=== PATIENT | male | born 1975 | race Caucasian/White ===

== ENCOUNTER 2016-11-06 20:05 | Emergency (ER) | payer OTHER ==
[2016-11-06 20:22] VITALS: BP 123/73
[2016-11-06] MEDS ORDERED: Ibuprofen 600 MG Tab PO ONE (20:46)
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
== END 2016-11-06 21:15 | disposition home or self-care (01) ==
LOC: JD.ED 20:05
DX: M25.561 Pain in right knee (principal); M54.5 Low back pain; R21 Rash and other nonspecific skin eruption; V53.5XXA Driver of pick-up truck or van injured in collision with car, pick-up truck or van in traffic accident, initial encounter
CPT/HCPCS: 99284; A9270; 99283

== ENCOUNTER 2018-01-25 21:19 | Emergency (ER) | payer SELFPAY ==
[2018-01-25 21:28] VITALS: BP 123/87
--- NOTE | 2018-01-25 21:32 | EDM.PDOC ---
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 Patient basically has been complaining of severe muscle cramps occurring primarily in his posterior thighs calves and left upper abdomen for last 3-4 days. Tonight the pain was so bad that he nearly passed out or fainted secondary to the severity of the pain. This pain was primarily in his left upper lateral abdominal wall. White could see the muscle bulged up at the site of planes of pain. This created him to be quite short of breath. He nearly fainted. Patient denies being on any medications. He did go to work today he has been eating and drinking normally. reports she's been having some positive constipation as of late suggesting some fluid probation. He does have a history of urinary frequency. States he is thirsty and does drink a lot. This raises concerns of possible occult type 2 diabetes. Onset: Gradual (Has been having intermittent muscle cramps for the better part of a week but particularly bad the last 3 days and tonight.) Duration: Day(s):, Intermittent, Waxing/Waning Location: Reports: Abdomen, Lower Extremity, Left, Lower Extremity, Right (Both posterior thighs and calves.) Quality: Reports: Other (Intermittent diffuse muscle cramping pain.) Severity: Severe (Night the pain was severe /. Still feels some discomfort in his left upper abdominal wall but not in any acute pain at this time) Improves with: Reports: Other (Muscle cramps come and go usually worse in the evening.) Context: Reports: Other (Was at rest tonight when he developed severe pain). Denies: Activity, Exercise, Lifting, Sick Contact, Trauma Associated Symptoms: Reports: Malaise, Nausea/Vomiting, Other (Near syncope tonight due to severity of muscle cramp in the left upper abdominal wall.). 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 Denies: Fever, Chills HEENT: Reports: No Symptoms Respiratory: Reports: No Symptoms Cardiovascular: Reports: Syncope (near syncope tonight due to severe muscle cramps left upper abdominal wall) Endocrine: Reports: Fatigue GI/Abdominal: Reports: Constipation : Reports: Frequency Musculoskeletal: Reports: Other (Diffuse intermittent muscle cramps abdominal wall both lower extremities.) Skin: Reports: Other (Has a chronic rash on his knees and elbows compatible psoriasis. Has never received treatment for this.) Neurological: Reports: Syncope (Near syncopal event tonight while having severe muscle cramping left upper abdominal wall). Denies: Difficulty Walking Psychiatric: Reports: No Symptoms Hematologic/Lymphatic: Reports: No Symptoms Immunologic: Reports: No Symptoms ED EXAM, DIZZINESS - Physical Exam Exam: See Below Exam Limited By: Language Barrier (Patient is primarily Citizen Of [place]-speaking. His faxes interpreted although he understands Swazi quite well.) General Appearance: Alert, WD/WN, No Apparent Distress Eye Exam: Right Eye: Conjunctival Injection (Mild bilaterally. He denies any itching of the eyes.) Throat/Mouth: Normal Inspection, Normal Lips, Normal Teeth, Normal Oropharynx, Other Head Exam: Atraumatic (Tongue is normal in appearance), Normocephalic Neck: Normal Inspection, Supple, Non-Tender, Full Range of Motion. No: Carotid Bruit, Lymphadenopathy (L), Lymphadenopathy (R) Respiratory/Chest: No Respiratory Distress, Lungs Clear, Normal Breath Sounds, No Accessory Muscle Use Cardiovascular: Normal Peripheral Pulses, Regular Rate, Rhythm, No Edema, No Gallop, No Murmur GI/Abdominal: Normal Bowel Sounds, Soft, Non-Tender, No Organomegaly, No Abnormal Bruit, No Mass, Pelvis Stable, Other (No surgical scars) Neurological: Alert, Normal Mood/Affect, Normal Dorsiflexion, CN II-XII Intact, No Motor/Sensory Deficits, Oriented x 3 DTR: 0: Achilles (L), 1+: Achilles (R), Achilles (L), 2+: Bicep (R), Bicep (L), Patella (R), Patella (L) Back Exam: Normal Inspection, Full Range of Motion. No: CVA Tenderness (L), CVA Tenderness (R) Extremities: Normal Inspection, Normal Range of Motion, Non-Tender, No Pedal Edema, Normal Capillary Refill Psychiatric: Normal Affect, Normal Mood Skin Exam: Warm, Dry, Intact, Normal Color Course - Vital Signs Last Recorded V/S: Last Vital Signs Temp 37.1 C 01/25/18 21:23 Pulse 77 01/25/18 21:23 Resp 18 01/25/18 21:23 BP 123/87 01/25/18 21:23 Pulse Ox 97 01/25/18 21:23 - Orders/Labs/Meds Orders: Active Orders 24 hr Category Date Time Status CALCIUM, IONIZED, SERUM [REF] Stat Lab 01/25/18 21:55 Received Labs: Laboratory Tests 01/25/18 01/25/18 01/25/18 Range/Units 21:55 21:55 21:55 WBC 7.91 (4.23-9.07) K/mm3 RBC 4.56 L (4.63-6.08) M/mm3 Hgb 14.0 (13.7-17.5) gm/L Hct 39.7 L (40.1-51.0) % MCV 87.1 (79.0-92.2) fl MCH 30.7 (25.7-32.2) pg MCHC 35.3 (32.2-35.5) g/dl RDW Std Deviation 40.4 (35.1-43.9) fL Plt Count 291 (163-337) K/mm3 MPV 8.9 L (9.4-12.3) fl Neutrophils % (Manual) 62 H (40-60) % Band Neutrophils % 0 (0-10) % Lymphocytes % (Manual) 25 (20-40) % Atypical Lymphs % 0 % Monocytes % (Manual) 11 H (2-10) % Eosinophils % (Manual) 1 (0.8-7.0) % Basophils % (Manual) 1 (0.2-1.2) Platelet Estimate Adequate Plt Morphology Comment Normal RBC Morph Comment Normal Sodium 139 (136-145) mEq/L Potassium 3.6 (3.5-5.1) mEq/L Chloride 104 (98-107) mEq/L Carbon Dioxide 26 (21-32) mEq/L Anion Gap 12.6 (5-15) BUN 21 H (7-18) mg/dL Creatinine 1.0 (0.7-1.3) mg/dL Est Cr Clr Drug Dosing 68.75 mL/min Estimated GFR (MDRD) > 60 (>60) mL/min BUN/Creatinine Ratio 21.0 H (14-18) Glucose 94 (74-106) mg/dL Lactic Acid (0.4-2.0) mmol/L Calcium 9.0 (8.5-10.1) mg/dL Magnesium (1.8-2.4) mg/dl Total Bilirubin 0.7 (0.2-1.0) mg/dL AST 33 (15-37) U/L ALT 99 H (16-63) U/L Alkaline Phosphatase 102 (46-116) U/L C-Reactive Protein 0.3 (<1.0) mg/dL Total Protein 7.5 (6.4-8.2) g/dl Albumin 4.0 (3.4-5.0) g/dl Globulin 3.5 gm/dL Albumin/Globulin Ratio 1.1 (1-2) Cholesterol (<200) mg/dL LDL Cholesterol Direct (<100) mg/dL HDL Cholesterol (40-59) mg/dL TSH 3rd Generation 2.925 (0.358-3.74) uIU/mL Urine Color Yellow (Yellow) Urine Appearance Clear (Clear) Urine pH 6.0 (5.0-8.0) Ur Specific [place] > or = 1.030 (1.005-1.030) Urine Protein Negative (Negative) Urine Glucose (UA) Negative (Negative) Urine Ketones Negative (Negative) Urine Occult Blood Negative (Negative) Urine Nitrite Negative (Negative) Urine Bilirubin Negative (Negative) Urine Urobilinogen 2.0 H (0.2-1.0) Ur Leukocyte Esterase Negative (Negative) Urine RBC Not seen (0-5) /hpf Urine WBC Not seen (0-5) /hpf Ur Epithelial Cells 0-5 (0-5) /hpf Amorphous Sediment Few H (NOT SEEN) /hpf Urine Bacteria Few (FEW) /hpf Urine Mucus Moderate H (FEW) /hpf Ketones (0.0-0.3) mM Hepatitis C Antibody (NEGATIVE) 01/25/18 01/25/18 01/25/18 Range/Units 21:55 21:55 21:55 WBC (4.23-9.07) K/mm3 RBC (4.63-6.08) M/mm3 Hgb (13.7-17.5) gm/L Hct (40.1-51.0) % MCV (79.0-92.2) fl MCH (25.7-32.2) pg MCHC (32.2-35.5) g/dl RDW Std Deviation (35.1-43.9) fL Plt Count (163-337) K/mm3 MPV (9.4-12.3) fl Neutrophils % (Manual) (40-60) % Band Neutrophils % (0-10) % Lymphocytes % (Manual) (20-40) % Atypical Lymphs % % Monocytes % (Manual) (2-10) % Eosinophils % (Manual) (0.8-7.0) % Basophils % (Manual) (0.2-1.2) Platelet Estimate Plt Morphology Comment RBC Morph Comment Sodium (136-145) mEq/L Potassium (3.5-5.1) mEq/L Chloride (98-107) mEq/L Carbon Dioxide (21-32) mEq/L Anion Gap (5-15) BUN (7-18) mg/dL Creatinine (0.7-1.3) mg/dL Est Cr Clr Drug Dosing mL/min Estimated GFR (MDRD) (>60) mL/min BUN/Creatinine Ratio (14-18) Glucose (74-106) mg/dL Lactic Acid 0.9 (0.4-2.0) mmol/L Calcium (8.5-10.1) mg/dL Magnesium 2.1 (1.8-2.4) mg/dl Total Bilirubin (0.2-1.0) mg/dL AST (15-37) U/L ALT (16-63) U/L Alkaline Phosphatase (46-116) U/L C-Reactive Protein (<1.0) mg/dL Total Protein (6.4-8.2) g/dl Albumin (3.4-5.0) g/dl Globulin gm/dL Albumin/Globulin Ratio (1-2) Cholesterol (<200) mg/dL LDL Cholesterol Direct (<100) mg/dL HDL Cholesterol (40-59) mg/dL TSH 3rd Generation (0.358-3.74) uIU/mL Urine Color (Yellow) Urine Appearance (Clear) Urine pH (5.0-8.0) Ur Specific [place] (1.005-1.030) Urine Protein (Negative) Urine Glucose (UA) (Negative) Urine Ketones (Negative) Urine Occult Blood (Negative) Urine Nitrite (Negative) Urine Bilirubin (Negative) Urine Urobilinogen (0.2-1.0) Ur Leukocyte Esterase (Negative) Urine RBC (0-5) /hpf Urine WBC (0-5) /hpf Ur Epithelial Cells (0-5) /hpf Amorphous Sediment (NOT SEEN) /hpf Urine Bacteria (FEW) /hpf Urine Mucus (FEW) /hpf Ketones 0.08 (0.0-0.3) mM Hepatitis C Antibody (NEGATIVE) 01/25/18 01/25/18 Range/Units 21:55 21:55 WBC (4.23-9.07) K/mm3 RBC (4.63-6.08) M/mm3 Hgb (13.7-17.5) gm/L Hct (40.1-51.0) % MCV (79.0-92.2) fl MCH (25.7-32.2) pg MCHC (32.2-35.5) g/dl RDW Std Deviation (35.1-43.9) fL Plt Count (163-337) K/mm3 MPV (9.4-12.3) fl Neutrophils % (Manual) (40-60) % Band Neutrophils % (0-10) % Lymphocytes % (Manual) (20-40) % Atypical Lymphs % % Monocytes % (Manual) (2-10) % Eosinophils % (Manual) (0.8-7.0) % Basophils % (Manual) (0.2-1.2) Platelet Estimate Plt Morphology Comment RBC Morph Comment Sodium (136-145) mEq/L Potassium (3.5-5.1) mEq/L Chloride (98-107) mEq/L Carbon Dioxide (21-32) mEq/L Anion Gap (5-15) BUN (7-18) mg/dL Creatinine (0.7-1.3) mg/dL Est Cr Clr Drug Dosing mL/min Estimated GFR (MDRD) (>60) mL/min BUN/Creatinine Ratio (14-18) Glucose (74-106) mg/dL Lactic Acid (0.4-2.0) mmol/L Calcium (8.5-10.1) mg/dL Magnesium (1.8-2.4) mg/dl Total Bilirubin (0.2-1.0) mg/dL AST (15-37) U/L ALT (16-63) U/L Alkaline Phosphatase (46-116) U/L C-Reactive Protein (<1.0) mg/dL Total Protein (6.4-8.2) g/dl Albumin (3.4-5.0) g/dl Globulin gm/dL Albumin/Globulin Ratio (1-2) Cholesterol 221 H (<200) mg/dL LDL Cholesterol Direct 153 H* (<100) mg/dL HDL Cholesterol 53.0 (40-59) mg/dL TSH 3rd Generation (0.358-3.74) uIU/mL Urine Color (Yellow) Urine Appearance (Clear) Urine pH (5.0-8.0) Ur Specific [place] (1.005-1.030) Urine Protein (Negative) Urine Glucose (UA) (Negative) Urine Ketones (Negative) Urine Occult Blood (Negative) Urine Nitrite (Negative) Urine Bilirubin (Negative) Urine Urobilinogen (0.2-1.0) Ur Leukocyte Esterase (Negative) Urine RBC (0-5) /hpf Urine WBC (0-5) /hpf Ur Epithelial Cells (0-5) /hpf Amorphous Sediment (NOT SEEN) /hpf Urine Bacteria (FEW) /hpf Urine Mucus (FEW) /hpf Ketones (0.0-0.3) mM Hepatitis C Antibody Negative (NEGATIVE) Meds: Medications Discontinued Medications Generic Name Dose Route Start Last Admin Trade Name Freq PRN Reason Stop Dose Admin Dextrose/Lactated Ringer's 1,000 mls @ 999 mls/hr 01/25/18 21:45 01/25/18 22: 01 Dextrose 5%-Lactated Ringers IV 999 mls/hr ASDIRECTED SHERMAN Administration Ketorolac Tromethamine 30 mg 01/25/18 21:45 01/25/18 21:57 Toradol IVPUSH 30 mg ONETIME SHERMAN Administration - Radiology Interpretation Free Text/Narrative:: 42-year-old male presents the ED with diffuse intermittent muscle cramps involving his calves posterior thighs and abdominal wall musculature over the last week but particularly bad the last 3 days. Tonight the pain was so bad he nearly fainted. He had severe cramping pain in his left upper lateral abdominal wall just below the costal margin. His reports that she can see the muscle balled up and swollen in this area. He remained somewhat tender in this area. By history he has urinary frequency and polydipsia. Therefore concern for type 2 diabetes exist. On no medications. He said he thinks he eats and drinks normally. He's had no diarrhea nausea or vomiting. He takes no medications on a regular basis. Can come on at any time but they tend to be worse in the evening. 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 Plan IV D5 LR at open. Toradol 30 mg IV for relief of cramping pain. T labs including serum ketones and lactic acid to be done. Ionized calcium as well. - Re-Assessments/Exams Free Text/Narrative Re-Assessment/Exam: 01/25/18 22:53 Labs are back. Total white count is normal at 7.91. 62% neutrophils with no bands reported hemoglobin is 14.0 with hematocrit of 39.7. Platelet count is normal 291,000. Monocyte count is slightly high at 11%. He was normal at 139 with a potassium of 3.6. Chloride is 104 bicarbonate 26. And a gap is 12.6. B1 is 21 with a creatinine of 1.0. Assessment EGFR is greater than 60. Glucose is 94. Lactic acid is 0.9. Calcium is 9.0. Magnesium normal at 2.1. Bilirubin reveals a mildly elevated ALT at 99. I will order hep C screen. Alkaline phosphatase is 102. C-reactive protein is 0.3. Thyroid function is normal with a TSH of 2.925. Urinalysis shows 2.0 urobilinogen. No proteinuria. Serum ketones are 0.08. Labs are therefore are essentially completely normal. The reason for his severe muscle spasms is unclear. 01/25/18 23:02 on further discussion the patient works very long hours and today did worked 14 hours. He therefore does get going depleted. States he drinks a lot of cold but not any juices. Going to place him on a calcium magnesium supplement or Calmag 600 mg once daily. Suggest a Gatorade 20 ounces at least once daily if not more particular days worries working hard and sweating a lot. In regards to his bilateral carpal tunnel syndrome clinically I have referred him to [facility] Patient's is asked me to check his cholesterol since we renee his blood through the ED today. I advised that it may not get paid for. Total cholesterol LDL and HDL ordered. 01/26/18: 00:20: Total cholesterol came back elevated at 223. LDL cholesterol is 153. HDL cholesterol is 53. This makes his risk ratio 4.2. Advised to pursue a low cholesterol diet but is not in need of any active treatment for hypercholesterolemia at this time due to low risk ratio. Departure - Departure Time of Disposition: 23:06 Disposition: Home, Self-Care 01 Condition: Fair Clinical Impression: Cramps, muscle, general, Bilateral carpal tunnel syndrome - Discharge Information *PRESCRIPTION DRUG MONITORING PROGRAM REVIEWED*: No *COPY OF PRESCRIPTION DRUG MONITORING REPORT IN PATIENT JAQUAN: No Instructions: Muscle Cramps and Spasms, [id number] Referrals: PCP,None [Primary Care Provider] - Forms: ED Department Discharge Additional Instructions: Evaluation in the emergency room tonight in regards to generalized severe recurrent muscle cramps particularly her lower extremities calves thighs and abdominal wall. He's been present off and on intermittently for the last several weeks. A complete metabolic profile was carried out today and revealed only mild signs of dehydration and mild low serum potassium level. However mostly muscle cramps are secondary to low blood volume. This means you need to take more fluids during the days that particularly worse sweating a lot. Suggest Gatorade at least 20 ounces once daily if not twice daily in an effort to replenish serum potassium and other electrolytes to prevent cramps from occurring. Maintaining hydration with lots of fluids but not only water is important on a daily basis. Just using calcium magnesium 600 mg tablet once daily. Best place to purchase this is through [facility]. 1 tablet once daily. In regards to bilateral carpal tunnel syndrome suggest referral eating appointment to see Dr. Nugent orthopedic surgeon who works for [facility] on the second floor of the hospital. He is an orthopedic surgeon but he does the surgery which we call median nerve decompression for carpal tunnel release. Please call his office to make an appointment. The number is [phone]. - My Orders Last 24 Hours: My Active Orders 01/25/18 21:55 CALCIUM, IONIZED, SERUM [REF] Stat - Assessment/Plan Last 24 Hours: My Active Orders 01/25/18 21:55 CALCIUM, IONIZED, SERUM [REF] Stat
[2018-01-25] MEDS ORDERED: Ketorolac 30 MG/ML SDV IVPUSH SCH (21:45)
[2018-01-25] MEDS ORDERED: Dextrose 5%-Lactated Ringers 1,000 ML IV SCH (21:45)
== END 2018-01-25 23:18 | disposition home or self-care (01) ==
LOC: JD.ED 21:19
DX: G56.03 Carpal tunnel syndrome, bilateral upper limbs (principal); R25.2 Cramp and spasm
CPT/HCPCS: 80053; 81001; 82009; 82330; 82465; 83605; 83718; 83721; 83735; 84443; 85007; 85027; 86140; 86803; 96361; 96374; 99284; J1885; J7042

== ENCOUNTER 2021-07-19 21:26 | Emergency (ER) | payer SELFPAY ==
[2021-07-20 00:01] VITALS: BP 107/77; PULSE 86
[2021-07-20] MEDS ORDERED: Naproxen 500 MG Tab PO ONE (01:04)
== END 2021-07-20 01:26 | disposition home or self-care (01) ==
LOC: JD.ED 21:26
DX: M79.601 Pain in right arm (principal)
CPT/HCPCS: 36415; 80053; 85025; 85652; 86038; 86140; 86430; 99283; A9270

== ENCOUNTER 2023-08-28 08:52 | Emergency (ER) | payer SELFPAY ==
[2023-08-28 09:50] LABS: BASOPHILS PERCENT AUTO 0.4 % (0.0-1.0); HEMATOCRIT 41.7 % (42.0-52.0); HEMOGLOBIN 14.5 gm/dl (14.0-18.0); IMMATURE GRAN ABSOLUTE AUTO 0.06 K/mm3 (0.00-0.05); IMMATURE GRAN PERCENT AUTO 0.5 % (0.0-0.4); LYMPHOCYTES ABSOLUTE AUTO 1.5 K/mm3 (1.0-4.8); LYMPHOCYTES PERCENT AUTO 13.9 % (24.0-44.0); MEAN CORPUSCULAR HGB CONC 34.8 g/dl (32.0-36.0); MEAN CORPUSCULAR VOLUME 86.2 fl (83.0-99.0); MEAN PLATELET VOLUME 8.6 fl (9.4-12.4); MONOCYTES ABSOLUTE AUTO 0.6 K/mm3 (0.0-0.8); MONOCYTES PERCENT AUTO 5.1 % (0.0-8.0); NEUTROPHILS ABSOLUTE AUTO 8.8 K/mm3 (1.8-7.7); NEUTROPHILS PERCENT AUTO 80.1 % (41.0-71.0); PLATELET COUNT,PLT 296 K/mm3 (150-400); RED BLOOD CELL COUNT 4.84 M/mm3 (4.52-5.90); WHITE BLOOD CELL COUNT,WBC 10.99 K/mm3 (3.9-11.3)
[2023-08-28 10:15] LABS: BARBITURATE SCREEN,URINE NEGATIVE (CUTOFF=200); BENZODIAZEPINES SCREEN,URINE NEGATIVE (CUTOFF=150); BUPRENORPHINE SCREEN,URINE NEGATIVE (CUTOFF=10); METHADONE SCREEN, URINE NEGATIVE (CUT0FF=200); METHAMPHETAMINES SCREEN, URINE PRESUMPTIVE POSITIVE (CUTOFF=500); OXYCODONE SCREEN,URINE NEGATIVE (CUT0FF=100); THC SCREEN,URINE 20 NG/ML NEGATIVE (CUTOFF=50)
[2023-08-28 10:16] LABS: AMPHETAMINES SCREEN, URINE NEGATIVE (CUTOFF=500)
[2023-08-28 10:18] LABS: A/G RATIO 1.2 (1-2); ALBUMIN 4.4 g/dl (3.4-5.0); ANION GAP 21.7 (5-15); BILIRUBIN TOTAL 0.5 mg/dL (0.2-1.0); EST CRCL DRUG DOSING (CG) 65.28 mL/min; ETHANOL BLOOD MEDICAL 0.02 gm% (0.00); POTASSIUM,K 3.7 mEq/L (3.5-5.1); PROTEIN TOTAL,TP 8.2 g/dl (6.4-8.2)
[2023-08-28 11:08] LABS: TSH 2.691 uIU/mL (0.358-3.74)
[2023-08-28 13:57] VITALS: BP 132/84; PULSE 84
== END 2023-08-28 13:53 | disposition home or self-care (01) ==
LOC: JD.ED 08:52
DX: F10.29 Alcohol dependence with unspecified alcohol-induced disorder (principal)
CPT/HCPCS: 36415; 80053; 80143; 80179; 80306; 80307; 84443; 85025; 99283; 99284

== ENCOUNTER 2024-01-30 10:50 | Emergency (ER) | payer SELFPAY ==
[2024-01-30 11:57] LABS: BASOPHILS PERCENT AUTO 0.7 % (0.0-1.0); EOSINOPHILS ABSOLUTE AUTO 0.2 K/mm3 (0.0-0.4); EOSINOPHILS PERCENT AUTO 2.5 % (0.0-6.0); HEMATOCRIT 42.4 % (42.0-52.0); HEMOGLOBIN 15.3 gm/dl (14.0-18.0); IMMATURE GRAN ABSOLUTE AUTO 0.01 K/mm3 (0.00-0.05); IMMATURE GRAN PERCENT AUTO 0.2 % (0.0-0.4); LYMPHOCYTES ABSOLUTE AUTO 1.7 K/mm3 (1.0-4.8); LYMPHOCYTES PERCENT AUTO 29.4 % (24.0-44.0); MEAN CORPUSCULAR HEMOGLOBIN 31.4 pg (28.0-32.0); MEAN CORPUSCULAR HGB CONC 36.1 g/dl (32.0-36.0); MEAN CORPUSCULAR VOLUME 87.1 fl (83.0-99.0); MONOCYTES ABSOLUTE AUTO 0.4 K/mm3 (0.0-0.8); MONOCYTES PERCENT AUTO 6.6 % (0.0-8.0); NEUTROPHILS ABSOLUTE AUTO 3.6 K/mm3 (1.8-7.7); NEUTROPHILS PERCENT AUTO 60.6 % (41.0-71.0); PLATELET COUNT,PLT 242 K/mm3 (150-400); RED BLOOD CELL COUNT 4.87 M/mm3 (4.52-5.90); WHITE BLOOD CELL COUNT,WBC 5.89 K/mm3 (3.9-11.3)
[2024-01-30 12:27] LABS: A/G RATIO 1.1 (1-2); ALBUMIN 3.9 g/dl (3.4-5.0); ANION GAP 13.9 (5-15); BILIRUBIN TOTAL 0.9 mg/dL (0.2-1.0); CALCIUM 9.5 mg/dL (8.5-10.1); EST CRCL DRUG DOSING (CG) 67.55 mL/min; POTASSIUM,K 3.9 mEq/L (3.5-5.1); PROTEIN TOTAL,TP 7.5 g/dl (6.4-8.2)
[2024-01-30 12:46] LABS: CORONAVIRUS COVID-19 NAA NEGATIVE (NEGATIVE); INFLUENZA A NAA NEGATIVE (NEGATIVE); RESPIRATORY SYNCYTIAL VIR NAA NEGATIVE (NEGATIVE)
[2024-01-30 14:56] LABS: TROPONIN I HIGH SENSITIVITY < 4 pg/mL (<=76)
[2024-01-30 20:07] VITALS: BP 118/84; PULSE 84
== END 2024-01-30 15:00 | disposition home or self-care (01) ==
LOC: JD.ED 10:50
DX: J40 Bronchitis, not specified as acute or chronic (principal)
CPT/HCPCS: 0241U; 36415; 71045; 80053; 83735; 84484; 85025; 85379; 99285; 99283